=== PATIENT | female | born 1960 | race Two or more races ===

== ENCOUNTER 2017-12-21 16:28 | Inpatient (IN) | payer MEDICAID ==
[~2017-12-21] VITALS: Ht 172.7 cm; Wt 106.5 kg
[~2017-12-21 16:28] MED LIST: ADAL40KI2 SC; ALBUPOW26 XX; ALPR0.25 PO; CARI-277 PO; CETI10CH PO; ESCI10TA53 PO; FLUT0.0531; FOLI1TAB6 PO; GABA300C10 PO; LEVO100T8 PO; LEVO200T46 PO; METF-370 PO; METH2.5T3 PO; NOR10T PO; OMEP20CA74 PO; ZOLP10TA PO
[2017-12-21 18:07] LABS: Basophils # (auto) 0.1 uL; Basophils % (auto) 0.8 % (0.0-2.0); Eosinophils # (auto) 0.1 uL; Eosinophils % (auto) 1.3 % (0.0-7.0); Hematocrit 37.6 % (36.0-46.0); Hemoglobin 12.4 g/dL (12.2-16.2); Lymphocytes # (auto) 2.3 uL; Lymphocytes % (auto) 23.4 % (10.0-50.0); Mean Corpuscular Hemoglobin 29.8 pg (28.0-32.0); Mean Corpuscular Hgb Conc. 33.1 g/dL (32.0-36.0); Monocytes # (auto) 0.7 uL; Monocytes % (auto) 6.7 % (0.0-12.0); Neutrophils # (auto) 6.6 uL; Neutrophils % (auto) 67.8 % (37.0-80.0); Nucleated Red Blood Cells % 0.1 %; Platelet Count (auto) 238 10^3/uL (140-450); Red Blood Cells 4.18 10^6/uL (4.0-5.20); Red Cell Distribution Width 14.4 % (11.8-14.3); White Blood Cell 9.8 10^3/uL (4.4-10.8)
[2017-12-21 18:25] LABS: Alanine Aminotransferase 20 U/L (13-56); Albumin 3.2 g/dL (3.4-5.0); Anion Gap 7 (5-15); Aspartate Aminotransferase 14 U/L (15-37); Blood Urea Nitrogen 10 mg/dL (7-18); Calcium 7.8 mg/dL (8.5-10.1); Carbon Dioxide 26 mmol/L (21-32); Chloride 108 mmol/L (98-107); GFR African American 91 mL/min; GFR Non-African American 76 mL/min; Glucose 90 mg/dL (74-106); Magnesium 2.1 mg/dL (1.6-2.6); Potassium 3.6 mmol/L (3.5-5.1); Sodium 141 mmol/L (136-145)
[2017-12-21 18:29] LABS: Alkaline Phosphatase 73 U/L (45-117); Bilirubin, Total 0.2 mg/dL (0.2-1.0); Total Protein 7.1 g/dL (6.4-8.2)
[2017-12-21 18:39] LABS: INR 0.85 (0.9-1.15); Partial Thromboplastin Time 24.1 sec (23.78-33.04); Prothrombin Time 9.3 sec (9.27-12.13)
[2017-12-21] MEDS ORDERED: ACETAMINOPHEN 325 MG TAB PO ONE (20:00)
[2017-12-21 20:04] LABS: Urine Bacteria NONE SEEN /hpf (None Seen); Urine Blood Negative /uL (Negative); Urine Specific Gravity 1.005 (1.001-1.035); Urine WBC 3 /hpf (0 - 5)
[2017-12-21 20:13] LABS: Alcohol, Urine < 3.0 mg/dL (0-5); Amphetamine Screen, Urine NEGATIVE (NEGATIVE); Barbiturate Scree,Urine NEGATIVE (NEGATIVE); Benzodiazephine Screen, Urine NEGATIVE (NEGATIVE); Cannabinoid Screen, Urine NEGATIVE (NEGATIVE); Cocaine Screen, Urine NEGATIVE (NEGATIVE); Opiate Scree,Urine NEGATIVE (NEGATIVE); Phencyclidine Screen, Urine NEGATIVE (NEGATIVE)
[2017-12-21] MEDS ORDERED: ACETAMINOPHEN 500 MG TAB PO PRN (23:45)
[2017-12-21] MEDS ORDERED: DEXTROSE (50%) 50ML SYRG IV PRN (23:45)
[2017-12-21] MEDS ORDERED: ONDANSETRON HCL 4 MG/2 ML VIAL IV PRN (23:45)
[2017-12-21] MEDS ORDERED: MORPHINE SULFATE 4 MG/ML SYR/VIAL IV PRN (23:45)
[2017-12-21] MEDS ORDERED: HYDROcodone-ACET 7.5/325MG TAB PO PRN (23:45)
[2017-12-22] VITALS (7 sets, daily range): BP systolic 89–103; BP diastolic 54–70
[2017-12-22] MEDS ORDERED: CERTKIT SC (02:01)
[2017-12-22] MEDS ORDERED: CLON0.5T PO (02:01)
[2017-12-22] MEDS ORDERED: PERCOT PO (02:01)
[2017-12-22] MEDS ORDERED: TRAZ150T79 PO (02:01)
[2017-12-22] MEDS: LEVOTHYROXINE SODIUM 100 MCG TAB PO SCH (06:41)
[2017-12-22] MEDS: ACCU-CHEK COMFORT CURVE STRIP VI SCH ×4 (06:41→21:44)
[2017-12-22] MEDS: InsuLIN REG 1unit/0.01ml Soln (100units/ml) SC SCH ×4 (06:41→21:45)
[2017-12-22 07:22] LABS: Basophils # (auto) 0 uL; Basophils % (auto) 0.5 % (0.0-2.0); Eosinophils # (auto) 0.1 uL; Eosinophils % (auto) 1.4 % (0.0-7.0); Hematocrit 37.6 % (36.0-46.0); Hemoglobin 12.4 g/dL (12.2-16.2); Lymphocytes # (auto) 2.6 uL; Lymphocytes % (auto) 27.1 % (10.0-50.0); Mean Corpuscular Hemoglobin 29.2 pg (28.0-32.0); Mean Corpuscular Hgb Conc. 32.9 g/dL (32.0-36.0); Mean Corpuscular Volume 88.8 fL (80.0-100.0); Monocytes # (auto) 0.7 uL; Monocytes % (auto) 7.2 % (0.0-12.0); Neutrophils # (auto) 6.1 uL; Neutrophils % (auto) 63.8 % (37.0-80.0); Nucleated Red Blood Cells % 0.1 %; Platelet Count (auto) 230 10^3/uL (140-450); Red Blood Cells 4.24 10^6/uL (4.0-5.20); Red Cell Distribution Width 14.2 % (11.8-14.3); White Blood Cell 9.5 10^3/uL (4.4-10.8)
[2017-12-22 07:29] LABS: BUN/Creatinine Ratio 14.1; Calcium 8.2 mg/dL (8.5-10.1); Potassium 3.8 mmol/L (3.5-5.1)
[2017-12-22] MEDS ORDERED: PNEUMOCOCCAL VACC POLYS 25 MCG/0.5 ML VIAL IM ONE (10:00)
[2017-12-22] MEDS: ASPirin-EC 81 mg tab PO SCH (10:27)
[2017-12-22] MEDS: TOPIRAMATE 25 MG TAB PO SCH ×2 (10:28→21:38)
[2017-12-22] MEDS: busPIRone HCL 10 MG TAB PO SCH ×2 (10:30→21:38)
[2017-12-22] MEDS: GABAPENTIN 400 MG CAP PO SCH ×2 (10:43→21:39)
[2017-12-22] MEDS ORDERED: INFLUENZA QUAD 2018-2019 0.5 ML SYRG IM ONE (15:15)
[2017-12-22] MEDS: OXYCODONE W/ ACETAMINOPHEN 5/325MG TABLET PO PRN ×2 (15:29→21:37)
[2017-12-22] MEDS ORDERED: LORazepam 2MG/ML-1ML VIAL IV PRN (20:45)
[2017-12-22 20:56] LABS: Cholesterol 127 mg/dL (< 200); Triglycerides 262 mg/dL (< 150)
[2017-12-22 20:58] LABS: HDL Cholesterol 46 mg/dL (40-59); LDL Cholesterol 56 mg/dL (< 100)
[2017-12-22] MEDS: ATORVASTATIN 20 MG TAB PO SCH (21:38)
[2017-12-22] MEDS: traZODone HCL 50 MG TAB PO SCH (21:38)
[2017-12-23] MEDS: OXYCODONE W/ ACETAMINOPHEN 5/325MG TABLET PO PRN ×3 (05:14→18:27)
[2017-12-23 05:57] VITALS: BP 105/67
[2017-12-23 06:44] LABS: Cholesterol 132 mg/dL (< 200)
[2017-12-23] MEDS: LEVOTHYROXINE SODIUM 100 MCG TAB PO SCH (06:46)
[2017-12-23 06:47] LABS: HDL Cholesterol 47 mg/dL (40-59); LDL Cholesterol 60 mg/dL (< 100); Triglycerides 240 mg/dL (< 150)
[2017-12-23] MEDS: InsuLIN REG 1unit/0.01ml Soln (100units/ml) SC SCH ×4 (06:48→22:14)
[2017-12-23] MEDS: ACCU-CHEK COMFORT CURVE STRIP VI SCH ×4 (06:48→22:07)
[2017-12-23 09:00] VITALS: BP 107/67
[2017-12-23] MEDS: ENOXAPARIN SOD 40 MG/0.4 ML SYRINGE SC SCH (09:54)
[2017-12-23] MEDS: GABAPENTIN 400 MG CAP PO SCH ×2 (09:55→22:03)
[2017-12-23] MEDS: ASPirin-EC 81 mg tab PO SCH (09:55)
[2017-12-23] MEDS: clonazePAM 0.5 MG TAB PO PRN ×2 (09:55→23:36)
[2017-12-23] MEDS: busPIRone HCL 10 MG TAB PO SCH ×2 (09:55→22:03)
[2017-12-23] MEDS: TOPIRAMATE 25 MG TAB PO SCH ×2 (09:55→22:05)
[2017-12-23 13:00] VITALS: BP 97/53
[2017-12-23] MEDS ORDERED: LEVOFLOXACIN 750MG 150 ML IV ONE (14:00)
[2017-12-23] MEDS ORDERED: LORazepam 2MG/ML-1ML VIAL IV PRN (16:45)
[2017-12-23 17:00] VITALS: BP 106/68
[2017-12-23 20:28] VITALS: BP 101/63
[2017-12-23 21:54] VITALS: BP 101/63
[2017-12-23] MEDS: ATORVASTATIN 20 MG TAB PO SCH (22:04)
[2017-12-23] MEDS: traZODone HCL 50 MG TAB PO SCH (22:04)
[2017-12-24 05:17] VITALS: BP 97/59
[2017-12-24] MEDS: LEVOTHYROXINE SODIUM 100 MCG TAB PO SCH (06:08)
[2017-12-24] MEDS: InsuLIN REG 1unit/0.01ml Soln (100units/ml) SC SCH ×3 (06:10→17:00)
[2017-12-24] MEDS: ACCU-CHEK COMFORT CURVE STRIP VI SCH ×3 (06:10→17:00)
[2017-12-24 09:00] VITALS: BP 94/56
[2017-12-24] MEDS: OXYCODONE W/ ACETAMINOPHEN 5/325MG TABLET PO PRN ×2 (09:01→15:22)
[2017-12-24] MEDS ORDERED: LEVOFLOXACIN 750MG 150 ML IV SCH (10:00)
[2017-12-24] MEDS: busPIRone HCL 10 MG TAB PO SCH (10:12)
[2017-12-24] MEDS: ASPirin-EC 81 mg tab PO SCH (10:12)
[2017-12-24] MEDS: GABAPENTIN 400 MG CAP PO SCH (10:12)
[2017-12-24] MEDS: TOPIRAMATE 25 MG TAB PO SCH (10:12)
[2017-12-24] MEDS: ENOXAPARIN SOD 40 MG/0.4 ML SYRINGE SC SCH (10:13)
[2017-12-24 13:00] VITALS: BP 111/66
[2017-12-24] MEDS ORDERED: LEVO750T64 PO (15:48)
[2017-12-24] MEDS ORDERED: ATOR20TA50 PO (15:48)
[2017-12-24] MEDS ORDERED: ASP81EC PO (15:48)
[2017-12-24 17:00] VITALS: BP 120/61
[2017-12-24 17:38] VITALS: BP 120/61
== END 2017-12-24 19:08 | disposition home health service (06) | DRG 463 ==
LOC: ER 16:28 → EDBD 16:28 → OVERFLOW 16:29 → EAST 12-22 00:50
PROVIDERS: ADMIT Nurse Practitioner Family; ATTEND Internal Medicine
DX: N30.00 Acute cystitis without hematuria (principal); J18.9 Pneumonia, unspecified organism; E11.40 Type 2 diabetes mellitus with diabetic neuropathy, unspecified; E44.1 Mild protein-calorie malnutrition; F44.89 Other dissociative and conversion disorders; G81.94 Hemiplegia, unspecified affecting left nondominant side; E66.01 Morbid (severe) obesity due to excess calories; H53.2 Diplopia; M19.90 Unspecified osteoarthritis, unspecified site; E03.9 Hypothyroidism, unspecified; E78.5 Hyperlipidemia, unspecified; E78.1 Pure hyperglyceridemia; G89.29 Other chronic pain; G47.33 Obstructive sleep apnea (adult) (pediatric); H57.02 Anisocoria; I10 Essential (primary) hypertension; H54.7 Unspecified visual loss; G56.03 Carpal tunnel syndrome, bilateral upper limbs; R55 Syncope and collapse; M54.9 Dorsalgia, unspecified; J45.909 Unspecified asthma, uncomplicated; K21.9 Gastro-esophageal reflux disease without esophagitis; M06.9 Rheumatoid arthritis, unspecified; Z68.35 Body mass index [BMI] 35.0-35.9, adult; Z88.0 Allergy status to penicillin; Z88.8 Allergy status to other drugs, medicaments and biological substances; Z91.040 Latex allergy status; Z79.82 Long term (current) use of aspirin; Z79.899 Other long term (current) drug therapy; Z82.3 Family history of stroke; Z82.49 Family history of ischemic heart disease and other diseases of the circulatory system; Z82.5 Family history of asthma and other chronic lower respiratory diseases; Z83.3 Family history of diabetes mellitus; Z83.71 Family history of colonic polyps; Z86.73 Personal history of transient ischemic attack (TIA), and cerebral infarction without residual deficits; Z90.710 Acquired absence of both cervix and uterus; Z23 Encounter for immunization
CPT/HCPCS: 36415; 70450; 70551; 71045; 71250; 80048; 80053; 80061; 80307; 81001; 82270; 82962; 83036; 83735; 83880; 84443; 84484; 85025; 85379; 85610; 85652; 85730; 86141; 93005; 93306; 93886; 94660; 96374; 97163; J1815; J1956

== ENCOUNTER 2022-07-15 20:04 | Emergency (ER) | payer MEDICAID ==
[~2022-07-15] VITALS: Ht 172.7 cm; Wt 120.0 kg
[~2022-07-15 20:04] MED LIST changes: -ADAL40KI2 SC; -ALPR0.25 PO; +ASPI-394 PO; +ATOR20TA50 PO; +CERTKIT SC; +CLON0.5T PO; +ESCI-28 PO; -ESCI10TA53 PO; -FOLI1TAB6 PO; -LEVO200T46 PO; +LEVO750T64 PO; -METH2.5T3 PO; -NOR10T PO; -OMEP20CA74 PO; +PERCOT PO; +TRAZ1TAB12 PO; -ZOLP10TA PO
[2022-07-15 20:28] VITALS: BP 166/96
[2022-07-15 21:32] LABS: Basophils # (auto) 0 10 ^3/uL (0-0.2); Basophils % (auto) 0.6 % (0.0-2.0); Eosinophils # (auto) 0.1 10 ^3/uL (0-0.8); Hemoglobin 13.2 g/dL (12.2-16.2); Lymphocytes # (auto) 1.5 10 ^3/uL (0.4-5.4); Lymphocytes % (auto) 25.3 % (10.0-50.0); Mean Corpuscular Hemoglobin 27.8 pg (28.0-32.0); Mean Corpuscular Hgb Conc. 32.1 g/dL (32.0-36.0); Mean Corpuscular Volume 86.7 fL (80.0-100.0); Monocytes # (auto) 0.4 10 ^3/uL (0-1.3); Monocytes % (auto) 6.2 % (0.0-12.0); Neutrophils % (auto) 66.9 % (37.0-80.0); Nucleated Red Blood Cells % 0.1 %; Red Blood Cells 4.73 10^6/uL (4.0-5.20); Red Cell Distribution Width 17.5 % (11.8-14.3)
[2022-07-15 22:07] LABS: Albumin 3.3 g/dL (3.4-5.0); BUN/Creatinine Ratio 14.3 (10.0-20.0); Calcium 8.7 mg/dL (8.5-10.1); Potassium 4.4 mmol/L (3.5-5.1)
[2022-07-15 22:09] LABS: Bilirubin, Total 0.2 mg/dL (0.2-1.0); Total Protein 7.2 g/dL (6.4-8.2)
== END 2022-07-16 08:23 | disposition left against medical advice (07) ==
LOC: ER 20:04 → EDBD 20:04 → ER 07-16 08:23
DX: R51.9 Headache, unspecified (principal); M25.562 Pain in left knee; M25.561 Pain in right knee; Z53.21 Procedure and treatment not carried out due to patient leaving prior to being seen by health care provider; W18.39XA Other fall on same level, initial encounter; Y93.89 Activity, other specified; Y92.89 Other specified places as the place of occurrence of the external cause; Y99.8 Other external cause status
CPT/HCPCS: 36415; 70450; 71250; 72125; 73030; 74176; 80053; 84484; 85025

== ENCOUNTER 2023-04-05 20:16 | Emergency (ER) | payer MEDICAID ==
[~2023-04-05] VITALS: Ht 172.7 cm; Wt 129.3 kg
[~2023-04-05 20:16] MED LIST changes: +CLON-1003 PO; -CLON0.5T PO; -ESCI-28 PO; +ESCI1TAB36 PO; +GABA-1250 PO; -GABA300C10 PO; +LEVO750T40 PO; -LEVO750T64 PO
[2023-04-05 23:00] LABS: Basophils # (auto) 0 10 ^3/uL (0-0.2); Basophils % (auto) 0.5 % (0.0-2.0); Eosinophils # (auto) 0.1 10 ^3/uL (0-0.8); Eosinophils % (auto) 1.3 % (0.0-7.0); Hematocrit 41.1 % (36.0-46.0); Hemoglobin 13.1 g/dL (12.2-16.2); Lymphocytes # (auto) 2.1 10 ^3/uL (0.4-5.4); Lymphocytes % (auto) 24.6 % (10.0-50.0); Mean Corpuscular Hemoglobin 28.2 pg (28.0-32.0); Mean Corpuscular Volume 88.3 fL (80.0-100.0); Monocytes # (auto) 0.6 10 ^3/uL (0-1.3); Monocytes % (auto) 6.5 % (0.0-12.0); Neutrophils # (auto) 5.8 10 ^3/uL (1.6-8.6); Neutrophils % (auto) 67.1 % (37.0-80.0); Red Blood Cells 4.66 10^6/uL (4.0-5.20); Red Cell Distribution Width 16.6 % (11.8-14.3); White Blood Cell 8.6 10^3/uL (4.4-10.8)
[2023-04-05 23:10] LABS: Anion Gap 2 (5-15); Carbon Dioxide 34 mmol/L (20-30); Chloride 102 mmol/L (98-107); Potassium 4.3 mmol/L (3.5-5.1); Sodium 138 mmol/L (136-145)
[2023-04-05 23:12] LABS: Calcium 8.6 mg/dL (8.7-10.4)
[2023-04-05 23:16] LABS: BUN/Creatinine Ratio 13.3 (10.0-20.0); Blood Urea Nitrogen 11 mg/dL (9-23); Glucose 151 mg/dL (74-106)
[2023-04-05 23:56] VITALS: BP 109/80; PULSE 78; RESP 20; TEMP 98.2; O2SAT 95
[2023-04-06 00:05] VITALS: PULSE 88
[2023-04-06] MEDS ORDERED: KETOROLAC TROMETH 60MG/2ML VIAL ONE (00:11)
[2023-04-06] MEDS ORDERED: KETOROLAC TROMETH 60MG/2ML VIAL IM ONE (00:15)
== END 2023-04-06 00:23 | disposition home or self-care (01) ==
LOC: ER 20:16 → EDBD 20:16 → ER 04-06 00:23
DX: M54.2 Cervicalgia (principal); M54.6 Pain in thoracic spine; R42 Dizziness and giddiness; I10 Essential (primary) hypertension; E78.5 Hyperlipidemia, unspecified; K21.9 Gastro-esophageal reflux disease without esophagitis; E11.9 Type 2 diabetes mellitus without complications; M19.90 Unspecified osteoarthritis, unspecified site; F41.9 Anxiety disorder, unspecified; Z98.890 Other specified postprocedural states; Z88.8 Allergy status to other drugs, medicaments and biological substances; Z79.899 Other long term (current) drug therapy; W18.39XA Other fall on same level, initial encounter; Y93.89 Activity, other specified; Y92.89 Other specified places as the place of occurrence of the external cause; Y99.8 Other external cause status
CPT/HCPCS: 36415; 72040; 72070; 80048; 85025; 93005; 96372; 99285; J1885

== ENCOUNTER 2023-10-16 08:10 | Emergency (ER) | payer MEDICAID, OTHER ==
[~2023-10-16] VITALS: Ht 170.2 cm; Wt 113.6 kg
[2023-10-16 08:12] VITALS: O2SAT 94
[2023-10-16] MEDS: SODIUM CHLORIDE 0.9% 500 ML IVB ONE (09:11)
[2023-10-16 09:12] LABS: Basophils # (auto) 0 10 ^3/uL (0-0.2); Basophils % (auto) 0.4 % (0.0-2.0); Eosinophils # (auto) 0.1 10 ^3/uL (0-0.8); Eosinophils % (auto) 1.1 % (0.0-7.0); Hematocrit 39.2 % (36.0-46.0); Hemoglobin 12.8 g/dL (12.2-16.2); Lymphocytes # (auto) 0.9 10 ^3/uL (0.4-5.4); Mean Corpuscular Hgb Conc. 32.6 g/dL (32.0-36.0); Monocytes # (auto) 0.4 10 ^3/uL (0-1.3); Monocytes % (auto) 5.9 % (0.0-12.0); Neutrophils # (auto) 5.3 10 ^3/uL (1.6-8.6); Neutrophils % (auto) 79.6 % (37.0-80.0); Nucleated Red Blood Cells % 0.1 %; Red Blood Cells 4.41 10^6/uL (4.0-5.20); Red Cell Distribution Width 18.4 % (11.8-14.3); White Blood Cell 6.6 10^3/uL (4.4-10.8)
[2023-10-16 09:25] LABS: Alanine Aminotransferase 39 U/L (7-40); Alkaline Phosphatase 90 U/L (46-116); Anion Gap 5 (5-15); Aspartate Aminotransferase 19 U/L (13-40); Blood Urea Nitrogen 12 mg/dL (9-23); Calcium 9.3 mg/dL (8.7-10.4); Carbon Dioxide 29 mmol/L (20-30); Chloride 104 mmol/L (98-107); Glucose 226 mg/dL (74-106); Magnesium 2.1 mg/dL (1.6-2.6); Potassium 3.9 mmol/L (3.5-5.1); Sodium 138 mmol/L (136-145)
[2023-10-16 09:26] LABS: Albumin 4.3 g/dL (3.2-4.8); Bilirubin, Total 0.5 mg/dL (0.2-1.0); Total Protein 6.9 g/dL (5.7-8.2)
[2023-10-16] MEDS: SODIUM CHLORIDE 0.9% 1,000 ML IV ONE (09:52)
[2023-10-16 12:00] LABS: Urine Bacteria None Seen /hpf (None Seen)
[2023-10-16 12:23] LABS: Urine Blood Negative /uL (Negative); Urine Clarity Turbid (Clear); Urine Color Yellow (Yellow); Urine Mucus FEW (None Seen); Urine Protein, UAD 1+ (Negative); Urine Urobilinogen 2 mg/dL (Negative); Urine WBC 7 /hpf (0 - 5); Urine pH 5.5 (5.0-9.0)
[2023-10-16 12:32] LABS: Amphetamine Screen, Urine Neg (NEGATIVE); Barbiturate Scree,Urine Neg (NEGATIVE); Benzodiazephine Screen, Urine Neg (NEGATIVE); Cocaine Screen, Urine Neg (NEGATIVE); Opiate Scree,Urine Neg (NEGATIVE)
[2023-10-16 12:33] LABS: Cannabinoid Screen, Urine Pos (NEGATIVE); Phencyclidine Screen, Urine Neg (NEGATIVE)
[2023-10-16] MEDS ORDERED: NITR-87 PO (14:19)
[2023-10-16 15:24] VITALS: BP 122/70; PULSE 86; RESP 18; O2SAT 93
== END 2023-10-16 15:39 | disposition home or self-care (01) ==
LOC: ER 08:10 → EDBD 08:10 → ER 15:39
DX: T40.2X1A Poisoning by other opioids, accidental (unintentional), initial encounter (principal); E11.65 Type 2 diabetes mellitus with hyperglycemia; N39.0 Urinary tract infection, site not specified; I10 Essential (primary) hypertension; E78.5 Hyperlipidemia, unspecified; K21.9 Gastro-esophageal reflux disease without esophagitis; M19.90 Unspecified osteoarthritis, unspecified site; F41.9 Anxiety disorder, unspecified; Z98.890 Other specified postprocedural states; Z90.710 Acquired absence of both cervix and uterus; Y92.89 Other specified places as the place of occurrence of the external cause
CPT/HCPCS: 36415; 71045; 80053; 80307; 81001; 83735; 85025; 93005; 96360; 96361; 99285; J7030

== ENCOUNTER 2024-08-01 15:00 | Emergency (ER) | payer MEDICAID ==
[~2024-08-01] VITALS: Ht 170.2 cm; Wt 131.0 kg
[~2024-08-01 15:00] MED LIST changes: +NITR-87 PO
[2024-08-01 15:10] VITALS: BP 162/96; RESP 18; TEMP 98.2; O2SAT 97
[2024-08-01 15:14] VITALS: PULSE 102
--- NOTE | 2024-08-01 15:38 | ED.PDOC ---
HPI (NEURO) HPI Comments 63 year old female HUNTER presents to the ED with chief complaint of headache. Patient reports that she has been experiencing a headache with associated nausea for the past 2 days. Patient relays that her pain is pressure-like and all over her head. Patient states she has history of migraines, but this feels worse than usual. Patient notes her BP and BG were high, with her glucose reading 179. Patient denies any vomiting, diarrhea, abdominal pain, dizziness, blurred vision, photophobia, chest pain, or SOB. Chief Complaint: Headache Time Seen by MD: 15:23 Primary Care Provider: unknown Reviewed Notes: Nurses Notes, Weatherization Director Notes, Medications, Allergies Information Source: Patient, Emergency Med Personnel Mode of Arrival: EMS Severity: Moderate Headache Severity: Moderate Timing: Days Duration: Since onset Prehospital treatment: None Headache Quality: Other (Pressure) Headache Location: Generalized Onset: At rest Circumstances: Spontaneous Associated Signs and Symptoms: Headache, Nausea Past Medical History PAST MEDICAL HISTORY: Anxiety, Arthritis, DM, GERD, High Lipids, HTN, Thyroid Past Medical History (Other): Chronic back pains, migraines Surgical History: , Hernia Repair, Hysterectomy, Tonsillectomy, Tubal Ligation Surgical History (Other): Left knee surgery, right wrist surgery, bilateral shoulder surgery PEDIATRIC SPEECH LANGUAGE PATHOLOGIST History: No Pertinent PEDIATRIC SPEECH LANGUAGE PATHOLOGIST History Family History Family History: Unobtainable Social History Smoker: Non-Smoker Alcohol: Denies ETOH Use Drugs: Denies Drug Use Lives In: Home Constitutional: denies: chills, diaphoresis, fatigue, fever, malaise, sweats, weakness, others EENTM: denies: blurred vision, double vision, ear bleeding, ear discharge, ear drainage, ear pain, ear ringing, eye pain, eye redness, hearing loss, mouth pain, mouth swelling, nasal discharge, nose bleeding, nose congestion, nose pain, photophobia, tearing, throat pain, throat swelling, voice changes, others Respiratory: denies: cough, hemoptysis, orthopnea, SOB at rest, shortness of breath, SOB with excertion, stridor, wheezing, others Cardiovascular: denies: chest pain, dizzy spells, diaphoresis, Dyspnea on exertion, edema, irregular heart beat, left arm pain, lightheadedness, palpitations, PND, syncope, others Gastrointestinal: reports: nausea; denies: abdomen distended, abdominal pain, blood streaked bowels, constipated, diarrhea, dysphagia, difficulty swallowing, hematemesis, melena, poor appetite, poor fluid intake, rectal bleeding, rectal pain, vomiting, others Genitourinary: denies: abnormal vagina bleeding, burning, dyspareunia, dysuria, flank pain, frequency, hematuria, incontinence, pain, , vagina discharge, urgency, others Neurological: reports: headache; denies: dizziness, fainting, left sided numbness, left sided weakness, numbness, paresthesia, pre-existing deficit, right sided numbness, right sided weakness, seizure, speech problems, tingling, tremors, weakness, others Musculoskeletal: denies: back pain, gout, joint pain, joint swelling, muscle pain, muscle stiffness, neck pain, others Integumetry: denies: bruises, change in color, change in hair/nails, dryness, laceration, lesions, lumps, rash, wounds, others Allergic/Immunocompromised: denies: Difficulty Healing, Frequent Infections, Hives, Itching, others Hematologic/Lymphatic: denies: anemia, blood clots, easy bleeding, easy bruising, swollen glands, others Endocrine: denies: excessive hunger, excessive sweating, excessive thirst, excessive urination, flushing, intolerance to cold, intolerance to heat, unexplained weight gain, unexplained weight loss, others Psychiatric: denies: anxiety, bipolar disorder, depression, hopeless, panic disorder, schizophrenia, sleepless, suicidal, others All Other Systems: Reviewed and Negative Physical Exam General Appearance: No Apparent Distress, Normal HEENT: Normal ENT Inspection, PERRL/EOMI Neck: Full Range of Motion, Non-Tender, Normal, Normal Inspection Respiratory: Chest Non-Tender, Lungs Clear, No Accessory Muscle Use, No Re spiratory Distress, Normal Breath Sounds Cardiovascular: No Edema, No JVD, No Murmur, No Gallop, Normal Peripheral Pulses, Regular Rate/Rhythm Breast Exam: Deferred Gastrointestinal: No Organomegaly, Non Tender, No Pulsatile Mass, Normal Bowel Sounds, Soft Genitalia: Deferred Pelvic: Deferred Rectal: Deferred Extremities: No calf tenderness, Normal capillary refill, Normal inspection, Normal range of motion, Non-tender, No pedal edema Musculoskeletal : Apperance: Normal Neurologic: Alert, vice president of academic affairs II-XII nml as Tested, No Motor Deficits, Normal Affect, Normal Mood, No Sensory Deficits Cerebellar Function: Normal Reflexes: Normal Skin: Dry, Normal Color, Warm Lymphatic: No Adenopathy Was a procedure done? Was a procedure done?: No Differential Diagnosis (SZ) Seizure: Closed Head Injury CVA: Encephalopathy General Weakness: Dehydration, Electrolyte imbalance Headache: Cluster, Migraine, CVA X-Ray, Labs, Meds, VS Vital Signs Date Time Temp Pulse Resp B/P (MAP) Pulse Ox O2 Delivery O2 Flow Rate FiO2 08/01/24 15:14 102 08/01/24 15:10 98.2 101 18 162/96 (118) 97 98.2 Time of 1ST Reevaluation: 16:23 Reevaluation 1ST: Unchanged Patient Education/Counseling: Diagnosis, Treatment Family Education/Counseling: No Family Present Additional Information Previous visits reviewed: 10/16/23 for weakness The following tests were ordered, and results were reviewed by me: CBC, BMP, UA Additional Information was gathered from interviewing the following independent historians: EMS I reviewed and agreed with the following test results read by other providers: None I discussed treatment and results with medical personnel and: patient Comprehensive systems review obtained and negative except for what is stated in the HPI. Departure 1 Departure Time of Disposition: 17:40 (Patient presenting with in my judgment sounds like a migraine. Patient eloped prior to treatment.) Impression: Primary Impression: Migraine Qualified Codes: G43.109 - Migraine with aura, not intractable, without status migrainosus Additional Impression: Headache Qualified Codes: R51.9 - Headache, unspecified Disposition: 07 LEFT AWOL/ELOPED Condition: Serious Critical Care Note Critical Care Time?: No Stability Stability form required: No Heart Score Heart Score: Heart Score Response (Comments) Value History N/A 0 EKG N/A 0 Age N/A 0 Risk Factors N/A 0 Troponin N/A 0 Total 0 I personally scribed for LANDRY MCKNIGHT MD ([email or web address]) on 08/01/24 at 15:38. Electronically submitted by Anoop Kerns ([email or web address]). LANDRY MCKNIGHT MD August 01, 2024 15:38
[2024-08-01] MEDS ORDERED: SODIUM CHLORIDE 0.9% 1,000 ML IV ONE (15:45)
[2024-08-01] MEDS ORDERED: ACETAMINOPHEN 325 MG TAB PO ONE (15:45)
[2024-08-01] MEDS ORDERED: METOCLOPRAMIDE HCL 5MG/ml INJ 2ml VIAL IV ONE (15:45)
--- NOTE | 2024-08-02 09:27 | ECG ---
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
== END 2024-08-01 20:49 | disposition left against medical advice (07) ==
LOC: EDBD 15:00 → ER 15:05
DX: G43.109 Migraine with aura, not intractable, without status migrainosus (principal); F41.9 Anxiety disorder, unspecified; M19.90 Unspecified osteoarthritis, unspecified site; E11.9 Type 2 diabetes mellitus without complications; I10 Essential (primary) hypertension; E78.5 Hyperlipidemia, unspecified; Z98.890 Other specified postprocedural states; Z90.710 Acquired absence of both cervix and uterus
CPT/HCPCS: 93005